=== PATIENT | female | born 2000 | race Hispanic/Latino ===

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

== ENCOUNTER 2022-01-06 12:36 | Emergency (ER) | payer OTHER ==
[~2022-01-06] VITALS: Ht 154.9 cm; Wt 79.4 kg
[~2022-01-06 12:36] MED LIST changes: +OMEPRAZOLE20 M2 PO; +ONDANSETRON ODT4 MG PO
[2022-01-06] MEDS ORDERED: IBUPROFEN 600 MG TAB PO STA (13:28)
[2022-01-06] MEDS ORDERED: IBUPROFEN 600 MG TAB ONE (13:51)
[2022-01-06] MEDS ORDERED: NAPROSYN500 MG PO (14:21)
== END 2022-01-06 14:32 | disposition home or self-care (01) ==
LOC: FSED 12:47
DX: S00.83XA Contusion of other part of head, initial encounter (principal); S50.12XA Contusion of left forearm, initial encounter; Y04.8XXA Assault by other bodily force, initial encounter; Y92.008 Other place in unspecified non-institutional (private) residence as the place of occurrence of the external cause; E11.9 Type 2 diabetes mellitus without complications; F31.9 Bipolar disorder, unspecified
CPT/HCPCS: 70450; 99283

== ENCOUNTER 2022-03-24 16:26 | Emergency (ER) | payer OTHER ==
[~2022-03-24] VITALS: Ht 154.9 cm; Wt 79.4 kg
[~2022-03-24 16:26] MED LIST changes: +NAPROSYN500 MG PO
== END 2022-03-24 19:13 | disposition home or self-care (01) ==
LOC: ER 17:08
DX: F07.81 Postconcussional syndrome (principal); R20.2 Paresthesia of skin; E11.9 Type 2 diabetes mellitus without complications; F31.9 Bipolar disorder, unspecified
CPT/HCPCS: 70450; 99282

== ENCOUNTER 2022-06-09 17:48 | Emergency (ER) | payer OTHER ==
[~2022-06-09] VITALS: Ht 154.9 cm; Wt 77.1 kg
[2022-06-09] MEDS ORDERED: MOTRIN200 MG PO (18:44)
== END 2022-06-09 18:55 | disposition home or self-care (01) ==
LOC: FSED 18:39
DX: T20.10XA Burn of first degree of head, face, and neck, unspecified site, initial encounter (principal); X12.XXXA Contact with other hot fluids, initial encounter; Y92.89 Other specified places as the place of occurrence of the external cause
CPT/HCPCS: 99282